=== PATIENT | female | born 1985 ===

== ENCOUNTER 2016-09-13 16:50 | Emergency (ER) | payer OTHER ==
[2016-09-13] MEDS ORDERED: Albuterol-Ipratrop 3 mg / 0.5 (3 ml) UD ONE (17:13)
[2016-09-13] MEDS ORDERED: Albuterol-Ipratrop 3 mg / 0.5 (3 ml) UD INH STA (17:15)
--- NOTE | 2016-09-13 17:18 | ED PDOC ---
HPI: General Adult Time Seen by Provider: 09/13/16 17:17 Chief Complaint (Nursing): Cough, Cold, Congestion Chief Complaint (Provider): URI/COUGH/FEVER History Per: Patient (31 Y/O FEMALE STARTED ON TAMIFLU AND THEN ZITHROMAX FOR COUGH/FEVER. NOTES PERSISTENT COUGHING . STATES IMPROVEMENT OF OTHER SYMPTOMS.) Past Medical History Reviewed: Historical Data, Nursing Documentation, Vital Signs Vital Signs: Last Vital Signs Temp 98.3 F 09/13/16 17:35 Pulse 104 H 09/13/16 18:41 Resp 20 09/13/16 16:57 BP 133/84 09/13/16 16:57 Pulse Ox 94 L 09/13/16 20:00 - Family History Family History: States: No Known Family Hx - Home Medications Home Medications: Ambulatory Orders Medication Instructions Recorded Promethazine/Codeine 5 ml PO Q12 PRN #100 ml 09/13/16 [Codeine/Promethazine 10 MG/5 Ml-6.25 MG/5 Ml] predniSONE [predniSONE Tab] 2 tab PO DAILY #8 tab 09/13/16 - Allergies Allergies/Adverse Reactions: Allergies Allergy/AdvReac Type Severity Reaction Status Date / Time Bleach (Sodium Hypochlorite) Allergy SWELLING Verified 09/13/16 18:39 pineapple Allergy RASH Verified 09/13/16 18:39 Review of Systems ROS Statement: Except As Marked, All Systems Reviewed And Found Negative Respiratory: Positive for: Cough, Shortness of Breath Physical Exam - Reviewed Nursing Documentation Reviewed: Yes Vital Signs Reviewed: Yes - Physical Exam Appears: Positive for: Well, Non-toxic, No Acute Distress Head Exam: Positive for: ATRAUMATIC, NORMAL INSPECTION, NORMOCEPHALIC Skin: Positive for: Normal Color, Warm, DRY Eye Exam: Positive for: EOMI, Normal appearance, PERRL ENT: Positive for: Normal ENT Inspection Neck: Positive for: Normal, Painless ROM Cardiovascular/Chest: Positive for: Regular Rate, Rhythm Respiratory: Positive for: Normal Breath Sounds, Other (BRONCHOSPASTIC COUGH NOTED) Gastrointestinal/Abdominal: Positive for: Normal Exam, Bowel Sounds, Soft Back: Positive for: Normal Inspection Extremity: Positive for: Normal ROM Neurologic/Psych: Positive for: Alert, Oriented - Laboratory Results Result Diagrams: 09/13/16 18:25 09/13/16 18:25 - ECG O2 Sat by Pulse Oximetry: 94 - Progress ED Course And Treament: DUONEB X 1 DOSE Patient states she feels worse EKG: sinus tachycardia 119 bpm; no ectopy no acute changes NS 1 liter wide open d-dimer< 200 CXR: pending Repeat HR 98 Disposition - Clinical Impression Clinical Impression: Cough - Patient ED Disposition Is Patient to be Admitted: No - Disposition Referrals: Tavo Muse MD [Staff Provider] - Disposition: Routine/Home Disposition Time: 20:05 Condition: FAIR Prescriptions: Promethazine/Codeine [Codeine/Promethazine 10 MG/5 Ml-6.25 MG/5 Ml] 5 ml PO Q12 PRN #100 ml PRN Reason: Cough predniSONE [predniSONE Tab] 2 tab PO DAILY #8 tab Instructions: Viral Syndrome (ED) Forms: [facility] ED School/Work Excuse
[2016-09-13] MEDS ORDERED: Sodium Chloride 0.9% 1,000 ML IV STA (18:04)
[2016-09-13 18:38] LABS: BASO % 0.6 % (0.0-2.0); EOS % 0.4 % (0.0-4.0); HEMATOCRIT 41.8 % (34.0-47.0); LYMPH # 2.2 K/uL (1.0-4.3); LYMPH % 29.7 % (20.0-40.0); MEAN CELL VOLUME 89.1 fl (81.0-99.0); MEAN CORPUSCULAR HEMOGLOBIN 29.7 pg (27.0-31.0); MEAN CORPUSCULAR HGB CONC 33.3 g/dL (33.0-37.0); MEAN PLATELET VOLUME 8.1 fl (7.2-11.7); MONO # 0.8 K/uL (0.0-0.8); MONO % 11.5 % (0.0-10.0); NEUT # 4.2 K/uL (1.8-7.0); NEUT % 57.8 % (50.0-75.0); NRBC % 0.1 % (0.0-0.0); RED CELL DISTRIBUTION WIDTH 13.1 % (11.5-14.5); WHITE BLOOD COUNT 7.3 K/uL (4.8-10.8)
[2016-09-13 18:45] LABS: ALB/GLOB RATIO 1.1 (1.0-2.1); ALKALINE PHOSPHATASE 78 U/L (38-126); ALT/SGPT 34 U/L (9-52); AST/SGOT 33 U/L (14-36); BILIRUBIN,TOTAL 0.4 mg/dl (0.2-1.3); BLOOD UREA NITROGEN 10 mg/dl (7-17); CALCIUM 9.3 mg/dL (8.4-10.2); CARBON DIOXIDE 23 mmol/L (22-30); CHLORIDE 105 mmol/L (98-107); GFR AFRICAN-AMERICAN > 60; GLUCOSE,RANDOM 106 mg/dL (65-105); POTASSIUM 4.3 MMOL/L (3.6-5.0); SODIUM 142 mmol/l (132-148)
[2016-09-13 20:32] VITALS: BP 122/72; PULSE 99; RESP 18; TEMP 98.1; O2SAT 97
--- NOTE | 2016-09-14 09:42 | RAD ---
HISTORY: chest pain/sob COMPARISON: No prior. TECHNIQUE: Chest PA and lateral FINDINGS: LUNGS: No active pulmonary disease. PLEURA: No significant pleural effusion identified. No pneumothorax apparent. CARDIOVASCULAR: Normal. OSSEOUS STRUCTURES: No significant abnormalities. VISUALIZED UPPER ABDOMEN: Normal. OTHER FINDINGS: None. IMPRESSION: No active disease.
--- NOTE | 2016-09-14 16:30 | CARD ---
APPROVED REPORT EKG Measurement Heart [id number] <Conclusion> Sinus tachycardia Right atrial enlargement Borderline ECG
== END 2016-09-13 20:27 | disposition home or self-care (01) ==
LOC: H.ER 16:50
DX: B34.9 Viral infection, unspecified (principal); R05 Cough; R50.9 Fever, unspecified